=== PATIENT | male | born 1985 | race Caucasian/White ===

== ENCOUNTER 2016-06-05 11:29 | Emergency (ER) | payer SELFPAY ==
[~2016-06-05] VITALS: Wt 45.6 kg
[2016-06-05 11:38] VITALS: Wt 45.6 kg
== END 2016-06-05 20:45 | disposition left against medical advice (07) ==
LOC: E/R 11:29
DX: Z53.21 Procedure and treatment not carried out due to patient leaving prior to being seen by health care provider (principal)
CPT/HCPCS: 93005

== ENCOUNTER 2017-05-24 10:40 | Day surgery (SDC) | END 2017-05-24 15:00 | disposition home or self-care (01) ==